=== PATIENT | female | born 2000 | race Caucasian/White ===

== ENCOUNTER 2021-06-04 12:26 | Emergency (ER) | payer OTHER ==
[~2021-06-04] VITALS: Ht 167.6 cm; Wt 113.4 kg
[2021-06-04 12:32] VITALS: BP_SYST 192
--- NOTE | 2021-06-04 12:32 | NUR ---
Patient to ER bed 05 to gown for evaluation. Side rails up.
--- NOTE | 2021-06-04 12:35 | NUR ---
DR SCOTT IN ROOM FOR EXAM
--- NOTE | 2021-06-04 12:36 | NUR ---
PT COMES IN TO ER WITH C/O HEADACHE AFTER SUSTAINIG A HEAD INJURY AT WORK. REPORTS SHE WAS PICKING UP A BOX OF PAPER AT [employer] AND WHEN GOING UP, SHE HITHER HEAD WITH A DRAWER ON TOP AT 1130 THIS AM. DENIES LOC. MILD NAUSEA AT THIS TIME, NO VOMITING. NEURO CHECKS INTACT. DENIES ANY WEAKNESS/NUMBNESS. NO CHANGES IN VISION. RESP EVEN AND UNLABORED, ON RA @99%. SKIN W/D/I.
--- NOTE | 2021-06-04 12:48 | NUR ---
Patient given written and verbal discharge instructions and verbalizes understanding. ER MD discussed with patient the results and treatment provided. Patient in stable condition. ID arm band removed. Rx of NONE given. Patient educated on pain management and to follow up with PMD. Pain Scale 0/10. Opportunity for questions provided and answered. Medication side effect fact sheet provided.
== END 2021-06-04 12:48 | disposition home or self-care (01) ==
LOC: SED 12:26
DX: S06.0X0A Concussion without loss of consciousness, initial encounter (principal); W22.8XXA Striking against or struck by other objects, initial encounter; Y93.89 Activity, other specified; Y92.89 Other specified places as the place of occurrence of the external cause; Y99.0 Civilian activity done for income or pay
CPT/HCPCS: 99281